=== PATIENT | female | born 2000 | race African-American/Black ===

== ENCOUNTER 2020-07-16 21:12 | Emergency (ER) | payer OTHER ==
[2020-07-16 23:45] LABS: HEMOGLOBIN 12.3 gm/dl (12.3-15.3); RED BLOOD COUNT 4.89 M/UL (4.00-5.10); WHITE BLOOD COUNT 11.8 K/UL (4.5-11.0)
[2020-07-17 00:05] LABS: BUN/CREATININE RATIO 19 (0-10)
== END 2020-07-17 02:43 | disposition home or self-care (01) ==
LOC: ER1 21:12
PROVIDERS: Family Medicine
DX: R10.13 Epigastric pain (principal); R10.10 Upper abdominal pain, unspecified; Z88.2 Allergy status to sulfonamides; F17.210 Nicotine dependence, cigarettes, uncomplicated
CPT/HCPCS: 36415; 80053; 81001; 83690; 84703; 85025; 96372; 99284; J0561